=== PATIENT | female | born 1960 | race African-American/Black ===

== ENCOUNTER 2018-01-06 18:22 | Emergency (ER) | payer OTHER ==
[~2018-01-06] VITALS: Ht 170.2 cm; Wt 109.0 kg
[~2018-01-06 18:22] MED LIST: AMLO5TAB22 PO; IBUP800T23 PO; METH750T2 PO
[2018-01-06 18:35] VITALS: BP 150/87; PULSE 84; RESP 18; TEMP 98.4; O2SAT 98
[2018-01-06] MEDS ORDERED: IBUP1TAB7 PO (23:40)
--- NOTE | 2018-01-06 23:40 | PD ---
HPI Chief Complaint: Laceration/Skin Injury Time Seen by Provider: 23:02 Travel History International Travel<30 days: No Contact w/Intl Traveler<30days: No Traveled to known affect area: No History of Present Illness HPI Patient is a 57-year-old female presenting to emergency department for evaluation of a laceration. Patient states she was trying to open a bag with a knife around 5 PM this evening when it slipped cutting her left forearm. Patient reports her pain is a 7 out of 10 and states is throbbing. Her tetanus vaccine is up-to-date. Symptom onset was sudden, symptoms are moderate in severity. There are no alleviating factors. She has no other complaints at this time. FOR[facility]LY [facility], [facility] Past Medical History Medical History: Denies Significant Hx Tetanus Vaccination: < 5 Years Social History Tobacco Use: No Allergies-Medications (Allergen,Severity, Reaction): Coded Allergies: diatrizoate meglumine (Unverified Allergy, Severe, 01/06/18) gadobenic acid (Unverified Allergy, Severe, 01/06/18) gadodiamide (Unverified Allergy, Severe, 01/06/18) gadoteridol (Unverified Allergy, Severe, 01/06/18) iodixanol (Unverified Allergy, Severe, 01/06/18) iohexol (Unverified Allergy, Severe, 01/06/18) Reported Meds & Prescriptions Reported Meds & Active Scripts Active Ibuprofen 800 Mg Tab 800 Mg PO Q8 PRN Robaxin (Methocarbamol) 750 Mg Tab 750 Mg PO QID PRN Reported Amlodipine Besylate 5 Mg Tab 1 Tab PO DAILY Review of Systems Except as stated in HPI: all other systems reviewed are Neg Skin: Positive Other (Laceration) Physical Exam Narrative GENERAL: Well-developed, well-nourished, alert female. Presenting in no acute distress. SKIN: Warm and dry. 1 cm superficial laceration to the mid left forearm. HEAD: Normocephalic. EYES: No scleral icterus. No injection or drainage. NECK: Supple, trachea midline. No JVD or lymphadenopathy. CARDIOVASCULAR: Regular rate and rhythm without murmurs, gallops, or rubs. RESPIRATORY: Breath sounds equal bilaterally. No accessory muscle use. GASTROINTESTINAL: Abdomen soft, non-tender, nondistended. MUSCULOSKELETAL: No cyanosis, or edema. 5 out of 5 box lidder strength of bilateral upper extremities, 2+ radial pulse. BACK: Nontender without obvious deformity. No CVA tenderness. Data Data Last Documented VS Vital Signs Date Time Temp Pulse Resp B/P (MAP) Pulse Ox O2 Delivery O2 Flow Rate FiO2 01/06/18 18:35 98.4 84 18 150/87 (108) 98 Orders Orders Oxycodone-Acetamin 5-325 Mg (Percocet (01/06/18 23:45) MDM Medical Decision Making Medical Screen Exam Complete: Yes Emergency Medical Condition: Yes Interpretation(s) Vital Signs Date Time Temp Pulse Resp B/P (MAP) Pulse Ox O2 Delivery O2 Flow Rate FiO2 01/06/18 18:35 98.4 84 18 150/87 (108) 98 Differential Diagnosis Laceration versus abrasion versus tendon injury versus other Narrative Course Patient is a 57-year-old female presenting for evaluation of a laceration. Patient is neurovascularly intact with no focal deficits on exam. There is no weakness in that extremity, no sign of tendon injury. Please see procedure report for laceration repair. Patient was given Percocet 1 for pain. She was encouraged to follow-up with her primary doctor. She was advised on signs and symptoms of infection. He was also given wound care instructions. She verbalized understanding of these instructions. Patient stable for discharge. Procedures Procedure Narrative LACERATION LOCATION: Left forearm LENGTH: 1 cm NUMBER OF STITCHES/DALIA: 2 stitches REPAIR: The area of the laceration was prepped with Betadine and sterilely draped. The laceration was infiltrated with 1% lidocaine with. The wound was copiously irrigated and explored without evidence of foreign body, tendon injury or neurovascular injury. The wound was closed using 4-0 Ethilon. This was a 1 layer repair. A sterile dressing was applied. The patient was advised to keep the dressing clean and dry. Patient tolerated the procedure well. Diagnosis Primary Impression: Laceration of forearm Qualified Codes: S51.812A - Laceration without foreign body of left forearm, initial encounter Referrals: Primary Care Physician 1 week Patient Instructions: Care For Your Stitches (ED), General Instructions, Laceration (ED) Additional Instructions: Keep stitches clean and dry, stitches will need to be removed in 1 week Return to emergency department for follow-up with your primary doctor Take medication as needed and as directed for pain Return immediately for any new or worsening symptoms Med/Other Pt SpecificInfo: Prescription(s) given Scripts Ibuprofen (Ibuprofen) 800 Mg Tab 800 MG PO Q6HR Y for PAIN, #40 TAB 0 Refills Prov: Carrie Cornell 01/06/18 Disposition: 01 DISCHARGE HOME Condition: Stable Carrie Cornell Jan 06, 2018 23:40
[2018-01-06] MEDS ORDERED: oxyCODONE/ACETAMINOPHEN 5 MG/325 MG TAB PO ONE (23:45)
== END 2018-01-06 23:49 | disposition home or self-care (01) ==
LOC: NEPD 18:22
DX: S51.812A Laceration without foreign body of left forearm, initial encounter (principal); W26.0XXA Contact with knife, initial encounter
CPT/HCPCS: 12001